=== PATIENT | female | born 1995 | race Caucasian/White ===

== ENCOUNTER 2022-09-21 17:53 | Emergency (ER) | payer BC, SELFPAY ==
[2022-09-21 18:04] VITALS: BP 141/95; PULSE 91; RESP 16; TEMP 36.1; O2SAT 100
--- NOTE | 2022-09-21 18:30 | ED.LOWEXIN ---
HPI - Extremity Injury (Lower) General Chief Complaint: Extremity Injury, Lower Stated Complaint: Right Foot Injury History of Present Illness HPI Narrative: 27-year-old female presents to the Urgent Care today complaining bilateral feet pain. Patient believes this started in the beginning of July when she believes she might have dropped a tablet on her right foot. Patient stated her left foot has been hurting as well however she denied having any injury to that foot. States then the patient has had evaluation multiple times with 2- negative x-rays and ultrasound done by her baseboard heating installer that stated that she might have a metatarsal fracture in her foot. The 2nd x-ray was performed after the ultrasound and determined that there is no fracture in the patient's foot. Patient was then referred to an orthopedist who stated that they do not work on feet and was referred to a jointer submarine cable where she has an appointment in mid October. Patient states she has been taking Tramadol and Tylenol for pain. Patient does take gabapentin however, is for her depression. Patient states pain is worse when she is ambulating. Patient stated she has noticed increased swelling to her lower extremities and does not use any compression socks. Patient is on her feet for at least 12 hours a day at work and works very often due to short staffing and does not wear comfortable shoes to work in. Patient describes the pain as sharp pain that is nonradiating. Patient states the pain is worse on the tops of her feet. Patient denies any numbness or tingling. Related Data Home Medications Medication Instructions Recorded Confirmed celecoxib 200 mg capsule mg 09/21/22 colestipol 1 gram tablet g PO 09/21/22 duloxetine 60 mg capsule,delayed mg PO 09/21/22 release famotidine 40 mg tablet mg 09/21/22 folic acid 1 mg tablet 09/21/22 furosemide 20 mg tablet mg 09/21/22 gabapentin 600 mg tablet mg 09/21/22 levothyroxine 75 mcg tablet mcg 09/21/22 losartan 50 mg tablet mg 09/21/22 methotrexate sodium 2.5 mg tablet mg 09/21/22 olanzapine 5 mg tablet mg 09/21/22 oxybutynin chloride 10 mg mg PO 09/21/22 tablet,extended release 24 hr pantoprazole 40 mg tablet,delayed mg PO 09/21/22 release potassium chloride 20 mEq meq PO 09/21/22 tablet,extended release(part/cryst) prazosin 2 mg capsule mg 09/21/22 prednisone 20 mg tablet mg 09/21/22 prochlorperazine maleate 10 mg mg 09/21/22 tablet propranolol 40 mg tablet mg 09/21/22 sumatriptan 20 mg/actuation nasal mg intranasal 09/21/22 spray tramadol 50 mg tablet mg 09/21/22 Allergies Allergy/AdvReac Type Severity Reaction Status Date / Time azithromycin [From Zithromax] Allergy Rash Verified 09/21/22 18:03 amoxicillin [From Augmentin] AdvReac Vomiting Verified 09/21/22 18:03 clavulanic acid AdvReac Vomiting Verified 09/21/22 18:03 [From Augmentin] Review of Systems Review of Systems: CONSTITUTIONAL: Denies fever, chills, or sweats. EYES: Denies visual changes, redness, or discharge. ENT: Denies otalgia and sore throat CARDIOVASCULAR: Denies chest pain and palpitations. Positive for lower extremity edema. RESPIRATORY: Denies cough or dyspnea. GASTROINTESTINAL: Denies abdominal pain, nausea, vomiting, or diarrhea. GENITOURINARY: Denies dysuria or hematuria. SKIN: Denies rash or itching. MUSCULOSKELETAL: Positive for bilateral feet pain. NEUROLOGIC: Denies headache, numbness, or weakness. Pertinent positives per HPI. PMFSH Comments At the time of my signature, I reviewed and agree with the nursing past medical, surgical, social, and family history. There is no relevant family history pertinent to the patient complaint. Exam Narrative: GENERAL: This is a well-nourished, well-developed patient, in no apparent distress. HEAD: normocephalic, atraumatic. EYES: Sclera clear/white. Vision is grossly intact. EARS: External ears normal, auditory canals clear and without drainag
== END 2022-09-21 18:55 | disposition home or self-care (01) ==
PROVIDERS: Emergency Provider Nurse Practitioner Family; PCP Family Medicine
DX: G89.29 Other chronic pain (principal); M79.672 Pain in left foot; M79.671 Pain in right foot; M19.90 Unspecified osteoarthritis, unspecified site; I10 Essential (primary) hypertension
CPT/HCPCS: 99213; G0463